=== PATIENT | female | born 1995 | race Caucasian/White ===

== ENCOUNTER 2016-10-31 17:07 | Emergency (ER) | payer OTHER ==
[~2016-10-31 17:07] MED LIST: BACTRIM DS TABL1 TA2 PO; BENADRYL PO; BIRTH CONTROL PILL PO; CIPRO PO; DICLOFENAC PO; ROBITUSSIN CF PO; SKELAXIN PO; [UNRECOGNIZED DRUG - OTHER]
== END 2016-10-31 18:31 | disposition home or self-care (01) ==
LOC: SED 17:07
DX: F11.129 Opioid abuse with intoxication, unspecified (principal); F15.129 Other stimulant abuse with intoxication, unspecified
CPT/HCPCS: 99283